=== PATIENT | female | born 1970 | race Caucasian/White ===

== ENCOUNTER 2021-02-12 18:11 | Emergency (ER) | payer OTHER ==
[~2021-02-12] VITALS: Ht 167.6 cm; Wt 119.3 kg
[2021-02-12] MEDS ORDERED: LEXAPRO 10 MG T10 M2 PO (18:25)
[2021-02-12] MEDS ORDERED: LISINOPRIL-HCT1 EAC1 PO (18:26)
[2021-02-12] MEDS ORDERED: ASA81BEC PO (18:26)
[2021-02-12] MEDS ORDERED: CHOLESTEROL (18:26)
[2021-02-12 18:45] VITALS: BP 148/92
--- NOTE | 2021-02-13 16:24 | EKG ---
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1970 Requested By: Cecilia Fay Order Number: [id number] Isamar MD: Perry Antonio Measurements Intervals [place] Rate: 81 P: -4 AL: 163 QRS: -2 QRSD: 84 T: 28 QT: 373 QTc: 433 Interpretive Statements Sinus rhythm Low voltage, precordial leads Baseline wander in lead(s) V1,V3 No previous ECG available for comparison Electronically Signed On 02-13-2021 16:24:35 CDT by Perry Antonio [email or web address] <ELECTRONICALLY SIGNED> By: Perry Antonio MD, [facility] 02/13/21 1624 181 181 Perry Antonio MD, [facility] /EPI
== END 2021-02-12 18:52 | disposition left against medical advice (07) ==
LOC: M.ERS 18:11
DX: R07.89 Other chest pain (principal); Z53.21 Procedure and treatment not carried out due to patient leaving prior to being seen by health care provider